=== PATIENT | female | born 1970 | race Caucasian/White ===

== ENCOUNTER → 2017-06-04 | Outpatient (CLI) | payer OTHER | LOC: RAD 15:40 | DX: Z12.31 Encounter for screening mammogram for malignant neoplasm of breast (principal) ==

== ENCOUNTER → 2018-01-29 | Outpatient (CLI) | payer OTHER ==
[~2018-01-29] MED LIST: CALCIUM 500 +1 EAC5 PO; CLARITIN10 M2 PO; CLIMARA1 EAC3 TOP; FLONASE 0.05%50 MCG NASAL; HAIR, SKIN & N1 EAC3 PO; MOBIC15 MG PO; PRILOSEC 20 MG20 MG PO; PROGESTERONE100 MG PO; VITAMIN D2000 UNI1 PO; WELLBUTRIN XL300 MG PO
== END ==
LOC: MRI 06:14
DX: M65.861 Other synovitis and tenosynovitis, right lower leg (principal); M77.51 Other enthesopathy of right foot and ankle

== ENCOUNTER 2018-01-30 05:42 | Day surgery (SDC) | payer OTHER ==
[~2018-01-30] VITALS: Ht 162.6 cm; Wt 90.7 kg
--- NOTE | ~2018-01-30 | PATH ---
[facility] [address] [place] [address] PATHOLOGY RPT PROCEDURE Name: RETA FOLEYMARIE [place] Room #: [place] [facility] [place] [id number] Admission: 01/30/18 Date of : 66 Discharge: 01/30/18 Report #: [id number] Path Case #: [id number] [facility] Accession Number: [id number] . 01 Material submitted: . SOFT TISSUE MASS AND UNDERLYING BONE RIGHT MID DORSAL FOOT . 01 Clinical history: . Neoplasm bone right foot, exostosis. . 02 Diagnosis: Soft tissue mass and underlying bone, right mid dorsal foot, excision: - Cyst-like space lined by dense fibrous tissue with myxoid changes and chronic inflammation, compatible with a ganglion cyst. - Fragments of cartilage and bone. . (IUV:mml; 02/03/2018) QLM/02/03/2018 . 02 Electronically signed: . Xi Galindo MD, Pathologist NPI- [id number] . 01 Gross description: . Received in formalin labeled "[place]ia Foley, soft tissue mass and underlying bone right mid dorsal foot" is a 3.2 x 1.6 x 0.8 cm portion of colby-yellow soft tissue, which is sectioned to reveal a pink-colby membranous possible cavity or cystic structure measuring 0.8 cm in greatest dimension. Also present within the container are two fragments of ink-colby bony tissue which measure 0.5 x 0.4 x 0.2 cm each. Delivery Room Supervisor soft tissue including the possible cavity is submitted in cassettes A1. The bone is submitted entirely in cassette A2 following decalcification. [place] [place] SYC/SYC . 02 CPT . [id number] Performed at: [address] [id number] MD Robi Butler MD Phone: [phone] Performed at: [address] [id number] MD Xi Galindo MD Phone: [phone]
[2018-01-30 14:14] VITALS: BP 132/87
[2018-01-30 14:16] LABS: HEMOGLOBIN 12.7 gm/dL (12.0-15.0); MCH 26.6 pg (26.0-34.0); MCHC 32.5 g/dL (28.0-37.0); MCV 81.8 fL (80.0-100.0); RBC 4.76 mil/uL (4.20-5.00); RDW 14.8 % (10.5-14.5); WBC 8.7 thou/uL (4.0-11.0)
[2018-01-30 14:26] LABS: CALCIUM 9.4 mg/dL (8.5-10.1); POTASSIUM 3.8 mmol/L (3.5-5.1)
== END 2018-01-30 17:00 | disposition home or self-care (01) ==
LOC: OR 05:42 → TBA 05:43 → OR 10:08
PROVIDERS: Podiatrist
DX: M25.774 Osteophyte, right foot (principal); M79.671 Pain in right foot; F32.9 Major depressive disorder, single episode, unspecified; Z68.33 Body mass index [BMI] 33.0-33.9, adult; Z87.891 Personal history of nicotine dependence; K21.9 Gastro-esophageal reflux disease without esophagitis; Z98.890 Other specified postprocedural states; F41.9 Anxiety disorder, unspecified
CPT/HCPCS: 50010; 50101; 50386; 56526; 57091; 62110; 62900; 70005